=== PATIENT | male | born 1990 | race Caucasian/White ===

== ENCOUNTER 2018-08-05 15:21 | Emergency (ER) | payer OTHER | END 2018-08-05 19:18 | disposition home or self-care (01) | LOC: FTE 15:21 | DX: M54.2 Cervicalgia (principal); M54.6 Pain in thoracic spine; M25.511 Pain in right shoulder; M25.512 Pain in left shoulder; J45.909 Unspecified asthma, uncomplicated | CPT/HCPCS: 71045; 72040; 99284-25 ==